=== PATIENT | female | born 2000 | race African-American/Black ===

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

== ENCOUNTER 2018-01-09 18:33 | Emergency (ER) | payer OTHER ==
[2018-01-09] MEDS: ACETAMINOPHEN 325 MG TAB PO (18:58)
[2018-01-09] MEDS: IBUPROFEN 600 MG TAB PO (19:54)
== END 2018-01-09 20:30 | disposition home or self-care (01) ==
LOC: M ED 18:33
DX: S09.90XA Unspecified injury of head, initial encounter (principal); V49.59XA Passenger injured in collision with other motor vehicles in traffic accident, initial encounter; Y92.410 Unspecified street and highway as the place of occurrence of the external cause; Z79.3 Long term (current) use of hormonal contraceptives
CPT/HCPCS: 99283

== ENCOUNTER 2018-02-06 15:50 | Emergency (ER) | payer OTHER ==
[2018-02-06] MEDS: AZITHROMYCIN 250 MG TAB PO (16:14)
[2018-02-06 17:49] LABS: CHLAMYDIA DNA AMPLIFICATION POSITIVE (NEGATIVE); GC DNA AMPLIFICATION NEGATIVE (NEGATIVE)
== END 2018-02-06 16:16 | disposition home or self-care (01) ==
LOC: M ED 15:50
DX: Z20.2 Contact with and (suspected) exposure to infections with a predominantly sexual mode of transmission (principal); A74.9 Chlamydial infection, unspecified; E55.9 Vitamin D deficiency, unspecified; Z79.3 Long term (current) use of hormonal contraceptives
CPT/HCPCS: 87591

== ENCOUNTER 2018-02-06 20:32 | Emergency (ER) | payer OTHER ==
[2018-02-06] MEDS: ONDANSETRON 4 MG ORAL DISINTEGRATING TAB (Q0162 PER 1MG) PO (21:10)
[2018-02-06] MEDS: GI COCKTAIL 50ML BTL(HYOSCYAMINE/MAALOX/LIDOCAINE VISCOUS)(1:3:1) PO (21:30)
== END 2018-02-06 21:52 | disposition home or self-care (01) ==
LOC: M ED 20:32
DX: T36.95XA Adverse effect of unspecified systemic antibiotic, initial encounter (principal); R11.2 Nausea with vomiting, unspecified; R19.7 Diarrhea, unspecified; A74.9 Chlamydial infection, unspecified; Z79.3 Long term (current) use of hormonal contraceptives
CPT/HCPCS: Q0162

== ENCOUNTER 2018-05-17 16:01 | Emergency (ER) | payer OTHER ==
[~2018-05-17] VITALS: Ht 162.6 cm; Wt 67.8 kg
[~2018-05-17 16:01] MED LIST: DOXY100C37 PO; IBUP-1022 PO; PRED20TA PO; TRINTAB; VITA100066 PO; ZOFR4TAB14 PO
[2018-05-17 16:02] VITALS: BP 131/75
[2018-05-17 18:44] LABS: CHLAMYDIA DNA AMPLIFICATION POSITIVE (NEGATIVE); GC DNA AMPLIFICATION NEGATIVE (NEGATIVE)
== END 2018-05-17 18:13 | disposition left against medical advice (07) ==
LOC: M ED 16:01
DX: Z11.3 Encounter for screening for infections with a predominantly sexual mode of transmission (principal); Z72.51 High risk heterosexual behavior; Z53.21 Procedure and treatment not carried out due to patient leaving prior to being seen by health care provider

== ENCOUNTER 2018-08-29 02:58 | Emergency (ER) | payer OTHER ==
[~2018-08-29] VITALS: Ht 162.6 cm; Wt 70.5 kg
[2018-08-29 04:16] LABS: BASO % 0.6 % (0.0-1.0); EOS # 0.2 10^3/uL (0.0-0.50); HEMATOCRIT 39.7 % (36.0-47.0); HEMOGLOBIN 12.3 g/dl (12.0-15.5); LYMPH # 2.6 10^3/uL (1.5-6.5); LYMPH % 40.7 % (24.0-44.0); MEAN CORPUSCULAR HEMOGLOBIN 24.8 pg (27.0-33.0); MEAN CORPUSCULAR VOLUME 80.2 fl (80.0-96.0); MONO # 0.3 10^3/uL (0.0-0.8); MONO % 5.1 % (0.0-5.0); NEUTROPHILS # 3.2 10^3/uL (1.8-7.7); NEUTROPHILS % 50.4 % (36.0-66.0); PLATELET COUNT, AUTOMATED 304 10^3/uL (150-450); RED BLOOD COUNT 4.95 10^6/uL (4.00-5.40); WHITE BLOOD COUNT 6.3 10^3/uL (4.0-10.0)
[2018-08-29 04:38] LABS: ALT/SGPT 26 U/L (12-78); BILIRUBIN,DIRECT < 0.1 MG/DL (0.0-0.2); BILIRUBIN,TOTAL 0.3 MG/DL (0.2-1.0); BLOOD UREA NITROGEN 16 MG/DL (7-18); CALCIUM LEVEL 9.3 MG/DL (8.5-10.1); CARBON DIOXIDE LEVEL 28 MEQ/L (21-32); CHLORIDE LEVEL 107 MEQ/L (98-107); GLUCOSE, FASTING 80 MG/DL (70-100); LIPASE 111 U/L (73-393); SODIUM LEVEL 141 MEQ/L (136-145); TOTAL PROTEIN 7.8 GM/DL (6.4-8.2)
[2018-08-29] MEDS ORDERED: KETOROLAC 30 MG/ML VIAL (J1885) IV ONE (05:30)
[2018-08-29] MEDS ORDERED: ACETAMINOPHEN *IV* 1,000 MG in APPROPRIATE DILUENT 1 EA IV ONE (05:30)
[2018-08-29] MEDS ORDERED: NS 1,000 ML IV ONE (05:30)
--- NOTE | 2018-08-29 06:39 | REPVR ---
EXAM: CT Abdomen and Pelvis Without Contrast EXAM DATE/TIME: 08/29/2018 6:15 AM CLINICAL HISTORY: 18 years old, female; Abdominal pain; Localized; Right; Additional info: R colic TECHNIQUE: Imaging protocol: Axial computed tomography images of the abdomen and pelvis without contrast. Coronal and sagittal reformatted images were created and reviewed. Radiation optimization: All CT scans at this facility use at least one of these dose optimization techniques: automated exposure control; mA and/or kV adjustment per patient size (includes targeted exams where dose is matched to clinical indication); or iterative reconstruction. COMPARISON: No relevant prior studies available. FINDINGS: Lungs: There is mild bilateral posterior dependent lung atelectasis. There is possibly a punctate right lower lobe 1 mm stone (coronal image 47). Liver: Normal. No mass. Gallbladder and bile ducts: Normal. No calcified stones. No ductal dilation. Pancreas: Normal. No ductal dilation. Spleen: Normal. No splenomegaly. Adrenals: Normal. No mass. Kidneys and ureters: Normal. No hydronephrosis. Stomach and bowel: Normal. No obstruction. No mucosal thickening. Appendix: No evidence of appendicitis. Intraperitoneal space: There small amount of free pelvic fluid. Vasculature: Normal. No abdominal aortic aneurysm. Lymph nodes: There is small bowel mesenteric haziness with shotty lymph nodes. Bladder: Unremarkable as visualized. Reproductive: The ovaries are likely prominent however not clearly visualized measuring up to 5.5-5.7 cm. Bones/joints: No acute fracture. No dislocation. Soft tissues: Unremarkable. IMPRESSION: 1. Questionable punctate 1 mm right lower renal pole stone. No definite ureteral stone no hydronephrosis seen. 2. No CT evidence of acute appendicitis. 3. Mesenteric haziness with shotty lymph nodes. Correlate clinically for enteritis. 4. Likely nonspecific prominent right and left ovaries. If indicated pelvic sonogram may be obtained for further evaluation. Electronically signed by: Maged De La Torre On 08/29/2018 06:39:06 AM
[2018-08-29] MEDS ORDERED: KETO10TAB PO (07:16)
[2018-08-29 07:20] VITALS: BP 104/64
== END 2018-08-29 07:44 | disposition home or self-care (01) ==
LOC: M ED 02:58
DX: M54.5 Low back pain (principal)
CPT/HCPCS: 74176; 80048; 80076; 81001; 83690; 84702; 85025; 96365; 96366; 96375; 99284; J0131; J1885

== ENCOUNTER 2018-09-07 20:21 | Emergency (ER) | payer OTHER ==
[~2018-09-07] VITALS: Ht 162.6 cm; Wt 70.5 kg
[2018-09-07 20:21] VITALS: BP 122/67
[~2018-09-07 20:21] MED LIST changes: +KETO10TAB PO
[2018-09-07] MEDS ORDERED: ALBUTEROL 90 MCG/ACT 8GM HFA INHALER INH STA (21:02)
--- NOTE | 2018-09-08 07:37 | REP ---
PA and lateral chest: There are no comparisons. The lung briones are clear. The cardiac size is normal. The mary, mediastinum, and skeletal structures are unremarkable. Impression: Negative PA and lateral chest. Electronically Signed by Avery Freeman MD 09/08/2018 07:28 A
== END 2018-09-07 21:49 | disposition home or self-care (01) ==
LOC: M ED 20:21
DX: J45.990 Exercise induced bronchospasm (principal); Z77.098 Contact with and (suspected) exposure to other hazardous, chiefly nonmedicinal, chemicals

== ENCOUNTER 2018-10-12 17:15 | Emergency (ER) | payer OTHER ==
[~2018-10-12] VITALS: Ht 162.6 cm; Wt 71.4 kg
[2018-10-12 18:56] LABS: BASO % 0.6 % (0.0-1.0); EOS # 0.1 10^3/uL (0.0-0.50); EOS % 2.1 % (0.0-3.0); HEMATOCRIT 40.2 % (36.0-47.0); HEMOGLOBIN 12.5 g/dl (12.0-15.5); LYMPH # 2.2 10^3/uL (1.5-6.5); LYMPH % 40.6 % (24.0-44.0); MEAN CORPUSCULAR HEMOGLOBIN 25.1 pg (27.0-33.0); MEAN CORPUSCULAR HGB CONC 31.1 g/dl (32.0-36.5); MEAN CORPUSCULAR VOLUME 80.7 fl (80.0-96.0); MONO # 0.5 10^3/uL (0.0-0.8); MONO % 8.9 % (0.0-5.0); NEUTROPHILS # 2.5 10^3/uL (1.8-7.7); NEUTROPHILS % 47.6 % (36.0-66.0); PLATELET COUNT, AUTOMATED 286 10^3/uL (150-450); RED BLOOD COUNT 4.98 10^6/uL (4.00-5.40); WHITE BLOOD COUNT 5.3 10^3/uL (4.0-10.0)
[2018-10-12 18:57] LABS: ALBUMIN 4.4 GM/DL (3.2-5.2); ALT/SGPT 28 U/L (12-78); BILIRUBIN,DIRECT 0.1 MG/DL (0.0-0.2); BILIRUBIN,TOTAL 0.3 MG/DL (0.2-1.0); BLOOD UREA NITROGEN 11 MG/DL (7-18); CALCIUM LEVEL 9.9 MG/DL (8.5-10.1); CARBON DIOXIDE LEVEL 28 MEQ/L (21-32); CHLORIDE LEVEL 105 MEQ/L (98-107); CREATININE FOR GFR 0.88 MG/DL (0.55-1.30); GLUCOSE, FASTING 77 MG/DL (70-100); LIPASE 67 U/L (73-393); POTASSIUM SERUM 3.6 MEQ/L (3.5-5.1); SODIUM LEVEL 140 MEQ/L (136-145); TOTAL PROTEIN 8.1 GM/DL (6.4-8.2)
[2018-10-12 19:25] VITALS: BP 110/67
== END 2018-10-12 19:27 | disposition home or self-care (01) ==
LOC: M ED 17:15
DX: R10.9 Unspecified abdominal pain (principal)

== ENCOUNTER → 2019-03-13 | Outpatient (CLI) | payer OTHER ==
[2019-03-13 14:41] LABS: HCG, SERUM QUALITATIVE NEGATIVE (NEGATIVE)
[2019-03-13 14:48] LABS: PROGESTERONE 0.66 NG/ML
== END ==
LOC: M LAB 13:35
PROVIDERS: ATTEND Obstetrics & Gynecology Obstetrics
DX: R10.2 Pelvic and perineal pain (principal)